=== PATIENT | male | born 1995 | race Caucasian/White ===

== ENCOUNTER 2024-01-28 06:07 | Day surgery (SDC) | payer OTHER, SELFPAY ==
[2024-01-28] VITALS (12 sets, daily range): BP systolic 103–141; BP diastolic 71–94; PULSE 73–133; RESP 16–22; TEMP 36.1–37.1; O2SAT 93–100; BMI 37.8
--- NOTE | 2024-01-28 | APP_PTH ---
PATIENT: RACH PINZON ANTHOACCT #:[id number] [place] [facility] [id number] AGE/SX: 28/M ROOM: RE01/28/[address]: Dr. Alex Taylor MD : 1995 BED: DIS: 01/28/2024 SPEC #: [id number] RECD: 01/28/24 11:37 STATUS: MONIKA RERuy #: [id number] JACINTO: 01/28/24 00:[address]: Alex Taylor DEPT: SURGICAL PATHOLOGY RECD BY: Martina Williamson ENTERED: 01/28/24 12:17 SP TYPE: APPENDIX OTHR DR: Marline Primary Care Phys Tissues: Appendix, NOS Procedures: Surgery Specimen Level III HEADER OPERATION: Laparoscopic appendectomy PRE-OP DIAGNOSIS: Acute appendicitis TISSUE SUBMITTED: Appendix MICROSCOPIC DIAGNOSIS Appendix, appendectomy: Acute necrotizing appendicitis. Acute serositis. AM. 01/29/2024 MICROSCOPIC DESCRIPTION Slides are reviewed. GROSS DESCRIPTION Received in fixative is one container labeled with the patient's name and designated appendix. The specimen consists of a vermiform appendix measuring 8.0 cm in length and 1.0 cm in average diameter. No gross perforations are evident. Serial sections reveal a patent lumen with fecal material. No mass lesion is identified. Build Engineer sections are submitted in one cassette. / AM: 01/28/2024 TC:2 CPT: 35851
--- NOTE | 2024-01-28 06:12 | EDS_ITS ---
HPI HPI - GI History of Present Illness Chief Complaint: Flank Pain Informant: patient Abdominal Pain/Flank Pain Onset: Yesterday Context: Gradual Onset Timing: Continuous Quality: Sharp Location: RLQ Worsened by: Nothing Relieved by: - (Movement, ambulation) Nausea/Vomiting/Emesis GI Symptom: Positive for Nausea and Vomiting Diarrhea/Melena/Hematochezia GI Symptom: Negative for Diarrhea, Melena or Hematochezia Associated Symptoms Associated Symptoms: Negative for Dysuria, Frequency or Hematuria Narrative Narrative: Patient presents with abdominal pain that began last night. Patient states it is gradually gotten worse. Patient states it is constant. Patient states the pain is sharp. Patient states that it is mainly over the right lower abdomen. Patient states that when he was able to get up and move last night it did start to feel better. Patient states nothing makes it worse. Patient states that now that he is laying flat his pain is improved but it is still present in the right lower abdomen. Patient does admit to a decreased appetite. Patient states his last meal was 7 PM last night. Patient admits to some nausea and vomiting. Patient denies any hematemesis or coffee-ground emesis. Patient denies any diarrhea, melena, or hematochezia. Patient denies any urinary complaints. [facility] Medical History (Updated 01/28/24 @ 07:[address] Noe Wesley DO) Benign brain tumor Home Medications ?Medication ?Instructions ?Recorded ?Last Taken ?Type NK 01/28/24 Unknown History Allergy/AdvReac Type Severity Reaction Status Date / Time No Known Allergies Allergy Verified 01/28/24 06:08 Surgical History (Updated 01/28/24 @ 06:[address] Noe Wesley DO) Hx of brain surgery Social History (Updated 01/28/24 @ 06:[address] Noe Wesley DO) Smoking Status: Current every day smoker tobacco type: cigarettes alcohol intake: current alcohol intake frequency: a few times a month ROS ROS ED Constitutional Constitutional ED: Reports fever(s) and subjective; Denies chills Eyes Eyes: Denies blurry vision or change in vision ENT ENT ED: Denies rhinorrhea or sore throat Cardiovascular Cardiovascular: Denies chest pain or palpitations Respiratory/Chest Respiratory/Chest: Denies cough or dyspnea Gastrointestinal Gastrointestinal: Reports abdominal pain, nausea and vomiting; Denies diarrhea or melena Genitourinary Genitourinary ED: Denies dysuria or hematuria Musculoskeletal Musculoskeletal: Denies back pain or neck pain Integumentary Denies abscess or rash Neurologic Neurologic: Denies headache(s) or weakness Allergic/Immunologic Allergic/Immunologic ED: Denies mouth swelling or urticaria EXAM Physical Exam Const Vital Signs: 01/28/24 06:08 Temperature 98.7 F Temperature Source Oral Pulse Rate 133 H Respiratory Rate 19 H Blood Pressure 141/80 H Blood Pressure Mean 100 Pulse Ox 99 Oxygen Delivery Method Room Air Positive well nourished and well developed General Appearance ED: well developed and NAD HEENT Reports moist mucous membranes Neck supple and no JVD Resp normal respiratory effort and clear to auscultation bilaterally Cardio regular rhythm Rate: tachycardic GI non-distended Palpation: soft and tender RLQ, RUQ and McBurney's point; Negative for guarding or rebound tenderness present Neuro CN's II-XII intact bilaterally, moves all extremities and no sensory deficits noted Sensorium / Orientation: alert Motor Exam: strength 5/5 throughout Psych mental status grossly normal MDM MDM MDM Narrative Medical decision making narrative: Differential diagnosis includes ureteral calculus, appendicitis, bowel obstruction, perforation, urinary tract infection, electrolyte abnormality, ga stroenteritis. CT scan of the abdomen and pelvis will be obtained to assess for ureteral calculus, bowel obstruction, perforation, and appendicitis. CBC will be obtained to assess for leukocytosis and anemia. Basic metabolic profile will be obtained to assess for electrolyte abnormality and renal function. Urinalysis will be obtained to assess for urinary tract infection and hematuria. Lab Data Attestation: I reviewed the patient's lab results. Lab results narrative: CBC was reviewed. There is a leukocytosis of 19.0. Basic metabolic profile was reviewed. BUN was 21 and creatinine was 1.31. Glucose was mildly elevated at 152. Labs: Laboratory Results - last 24 hr 01/28/24 06:17 WBC 19.0 H RBC 5.35 Hgb 15.4 Hct 44.8 MCV 83.7 MCH 28.8 MCHC 34.4 RDW Std Deviation 37.1 RDW Coeff of Cipriano 12.2 Plt Count 380 MPV 8.8 Immature Gran % (Auto) 0.400 Neut % (Auto) 79.2 H Lymph % (Auto) 11.3 L [place] % (Auto) 8.1 Eos % (Auto) 0.6 Baso % (Auto) 0.4 Absolute Neuts (auto) 15.1 H Absolute Lymphs (auto) 2.16 Nucleated RBC % 0 Diff Path Review June Sodium 138 Potassium 3.7 Chloride 108 H Carbon Dioxide 23.0 Anion Gap 7 BUN 21 H Creatinine 1.31 H Estim Creat Clear Calc 103.68 Est GFR (MDRD) Af Amer 82 Est GFR (MDRD) Non-Af 68 BUN/Creatinine Ratio 16.0 Glucose 152 H Calcium 9.1 Radiography Diagnostic Testing: Clinical Impression(s) from Imaging Studies Abdomen/Pelvis CT 01/28/24 06:27 IMPRESSION: Acute appendicitis. No definite evidence of perforation. Electronically Signed: Denise Winter MD at 7:48 EST , CT scan of the abdomen and pelvis was obtained. There is evidence of acute appendicitis. There is no evidence of perforation. This was interpreted by the radiologist was also independently reviewed by myself. Treatment and Re-Evaluation :: Smoking cessation was discussed. Patient was given IV fluids, morphine, and Zofran. Patient was feeling better on reevaluation. Patient was advised of his findings. Patient was given a dose of Zosyn. Case was discussed with Dr. Taylor from general surgery. Discharge Plan Triage Chief Complaint: Flank Pain ED Provider: Noe Wesley Dx/Rx/DC Orders Clinical Impression: Acute appendicitis, Abdominal pain, right lower quadrant Prescriptions: No Action NK Primary Care Provider: Care Physician,No Primary Referrals: Care Physician,No Primary [Primary Care Provider] - Print Language: Eritrean Disposition Disposition: [facility]
--- NOTE | 2024-01-28 06:27 | CT_ITS ---
We are attempting to reach an attending provider to discuss findings. An addendum with communication details will be sent when the communication is complete. EXAM: CT Abdomen And Pelvis W/O Contrast Injection HISTORY: Pain TECHNIQUE: Routine protocol CT abdomen and pelvis. IV Contrast: None.. Oral contrast: None. RADIATION DOSAGE (If Supplied By Facility): CTDIvol = ( 18.24 ) mGy, DLP = ( 1034.40 ) mGycm Individualized dose optimization techniques were used for this CT. COMPARISON: None. LIMITATIONS: None. FINDINGS: LOWER CHEST: Included lung bases are clear. LIVER: Grossly unremarkable. GALLBLADDER AND BILIARY TREE: Grossly unremarkable. PANCREAS: Grossly unremarkable. SPLEEN: Grossly unremarkable. ADRENAL GLANDS: Grossly unremarkable. KIDNEYS AND URETERS: No calculi demonstrated. No hydronephrosis. PERITONEUM: No free air. No free fluid. BOWEL: No bowel obstruction. APPENDIX: Enlarged 9 mm transverse, with extensive adjacent inflammatory stranding. No definite findings to suggest perforation although suboptimal without IV contrast. VESSELS: Abdominal aorta is normal caliber. REPRODUCTIVE ORGANS: Grossly unremarkable URINARY BLADDER: Grossly unremarkable. ABDOMINAL WALL: Unremarkable. BONES: No acute abnormalities. CT/Abdomen/Pelvis without Cont IMPRESSION: Acute appendicitis. No definite evidence of perforation. Electronically Signed: Denise Winter MD at 7:48 EST ,
[2024-01-28] MEDS: 0.9% Normal Saline (1000mL) 1,000 ML 999 ML IV (06:36)
[2024-01-28] MEDS: Ondansetron 4 MG/2 ML Vial IV (06:36)
[2024-01-28] MEDS: Morphine 4 MG/ML Syringe IV (06:37)
[2024-01-28 06:50] LABS: Absolute Lymphocyte Count 2.16 X10^3/uL (0.83-4.51); Absolute Neutrophil Count 15.1 X10^3/uL (2.0-7.7); Anion Gap 7 (5-15); BUN 21 mg/dL (7-18); Basophil# 0.07 X10^3/uL; Basophil% 0.4 % (0-1); Calcium,Total 9.1 mg/dL (8.5-10.1); Chloride 108 mmol/L (98-107); Creatinine, Serum 1.31 mg/dL (0.70-1.30); EST Glomerular Filtration Rate 68 mL/min (>60); Eosinophil# 0.12 X10^3/uL; Eosinophils% 0.6 % (0-5); Est Glom Filt Rate - Afr Amer 82 mL/min (>60); Estimated Creatinine Clearance 103.68 ml/min; Glucose 152 mg/dL (74-106); Hematocrit 44.8 % (40-54); Hemoglobin 15.4 g/dL (13.0-16.5); Lymphocyte # 2.16 X10^3/ul (0.83-4.51); Lymphocyte % 11.3 % (19-41); Mean Corp Hgb Conc 34.4 g/dL (32-36); Mean Corpuscular Hgb 28.8 pg (27.0-32.0); Mean Corpuscular Volume 83.7 fL (80-94); Mean Platelet Vol. 8.8 fl (6.2-12.0); Monocyte# 1.55 X10^3/uL; Monocyte% 8.1 % (0-10); NRBC Flagged by Analyzer 0 % (0-5); Neutrophil # 15.07 X10^3/uL (2.7-7.7); Neutrophil % 79.2 % (47-70); POSITIVE DIFFERENTIAL YES; Platelet Count 380 K/mm3 (150-450); Potassium 3.7 mmol/L (3.5-5.1); RBC Distribution Width CV 12.2 % (11.6-14.6); RBC Distribution Width SD 37.1 fl (35.1-43.9); Red Blood Count 5.35 M/mm3 (4.6-6.2); Sodium Level 138 mmol/L (136-145)
[2024-01-28 06:55] LABS: Differential Indicated SCAN CRITERIA MET
[2024-01-28] MEDS: Piperacil/Tazobactam 4.5 GM in 0.9% Normal Saline (100mL MB+) 100 ML IV (08:25)
[2024-01-28 08:36] LABS: Bacteria 0 SEEN /hpf (None Seen); Mucous, Urine 0 SEEN /hpf (<or=2+); Red Blood Cells-Urine 0 SEEN /hpf (0-5); Squamous Epithelial Cells - UA 0 SEEN /hpf (0-5); White Blood Cells 0 SEEN /hpf (0-5)
[2024-01-28 08:44] LABS: Color, Urine Yellow (Yellow); Glucose, Dipstick Normal (Normal); Ketone-Dipstick Negative (Negative); Leukocyte Esterase-Dipstick Negative /ul (Negative); Nitrite-Dipstick Negative (Negative); Occult Blood-Urine Negative /ul (Negative); Protein-Dipstick 15 mg/dl (Negative); Urine Bilirubin Dipstick Negative (Negative); Urine Clarity Clear (Clear); Urine Urobilinogen Normal (Normal); Urine pH 6.5 (5.0 - 8.0)
--- NOTE | 2024-01-28 09:38 | PRE.ANES_ITS ---
ASA Classification* ASA Classification ASA Classification: 2 Assessment & Plan Anesthesia* Anesthesia Assessment Anesthesia Assessment: Discussed sedation and/or anesthesia options, risks, benefits, and alternatives with patient/parents/legal guardian/POA. Questions invited. The patient/parents/legal guardian/POA seems to understand and agrees to proceed with anesthesia plan. Reviewed the physical assessment, medical history, allergy history and patient home medications list prior to surgery/procedure/anesthetic and documented any changes. Performed airway and anesthesia risk assessments. Anesthesia Type Anesthesia Type: General History Source History Obtained from:: Patient and Chart Anesthesia Focused Assessment* Temperature: 97.5 F Pulse Rate: 78 Blood Pressure: 136/85 Respiratory Rate: 16 Pulse Ox: 98 Oxygen Delivery Method: Room Air Airway Assessment Mouth opens: >3 cm Mallampati Score: II Teeth Condition: Chipped/Broken (Chipped tooth #12) Neck Range of motion (ROM): Full ROM Focused Labs Anesthesia Preop lab: CBC WBC 19.0 K/mm3 (4.4-11.0) H 01/28/24 06:17 RBC 5.35 M/mm3 (4.6-6.2) 01/28/24 06:17 Hgb 15.4 g/dL (13.0-16.5) 01/28/24 06:17 Hct 44.8 % (40-54) 01/28/24 06:17 Plt Count 380 K/mm3 (150-450) 01/28/24 06:17 CHEMISTRY Potassium 3.7 mmol/L (3.5-5.1) 01/28/24 06:17 Sodium 138 mmol/L (136-145) 01/28/24 06:17 BUN 21 mg/dL (7-18) H 01/28/24 06:17 Creatinine 1.31 mg/dL (0.70-1.30) H 01/28/24 06:17 Glucose 152 mg/dL (74-106) H 01/28/24 06:17 COAG Pre-Assessment Diagnosis/Proposed Procedure Planned Operative Procedure(s): Laparoscopic appendectomy. Anesthesia History Anesthesia History - radiological health specialist: Anesthesia History - radiological health specialist Hx Hospitalization No 01/25/16 00:01 Any Problems With Anesthesia No 01/28/24 08:42 Cholinesterase deficiency No 01/28/24 08:42 You/Your Family Experience No 01/28/24 08:42 fever (hyperthermia) with Relationship Recent Exposure to Contagious No 01/28/24 08:59 Disease Does patient have nerve No 01/28/24 08:42 stimulator Patient instructed to have No 01/28/24 08:42 device shut off --Does patient have Pacemaker No 01/28/24 08:59 or ICD? When Was Last Pacemaker Check QUESTION #4 FULL TEXT: You/Your Family Experience fever (hyperthermia) with Anesthesia Last Oral Intake Last Oral intake: Last Oral Intake NPO since Meds taken in AM with sips of water? Meds patient instructed to take am of surgery Any additional information?: Yes NPO since: 00:00 Meds taken in AM with sips of water?: Yes Meds patient instructed to take am of surgery: Patient had TheraFlu at 3 AM. PONV PONV - radiological health specialist: PONV - radiological health specialist Female HX of Motion Sickness HX of N/V After Surgery Non-Smoker Duration of Surgery greater than 60 minutes Number of Risk Factors PONV Score Height & Weight Height & Weight: Anesthesia: Height & Weight Height 5 ft 9 in 01/28/24 08:59 Weight: 116.2 kg 01/28/24 08:59 Body Mass Index (BMI) 37.8 01/28/24 08:59 Respiratory Assessment Respiratory Assessment - radiological health specialist: Respiratory Tract Infection Hx - radiological health specialist Hx Respiratory Tract Infection No 01/28/24 08:42 STOP Sleep Apnea STOP Sleep Apnea - radiological health specialist: STOP Sleep Apnea - radiological health specialist Hx Hypertension No 01/28/24 08:42 Hx Sleep Apnea No 01/28/24 08:42 CPAP BIPAP Do you snore loudly (louder No 01/28/24 08:42 than talking or can be heard Do you often feel tired/ No 01/28/24 08:42 fatigued/ sleepy during daytime? Has anyone observed you stop No 01/28/24 08:42 breathing during sleep? STOP Results Negative 01/28/24 08:42 QUESTION #5 FULL TEXT : Do you snore loudly (louder than talking or can be heard through closed doors)? 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 Specify any problems Hx of Preganancy in last 3 Months Nurse Filling Out Transfusion & Questions: Date: Time: Patient unable to answer at this time (ie. confused, unrespo /Reproduction History /Reproductive History - radiological health specialist: /Reproductive Hx- radiological health specialist Hx Now No 01/28/24 08:42 Gestational Age (in weeks): EDC: Hx Hx Para Hx Section [facility] Medical History Benign brain tumor Home Medications ?Medication ?Instructions ?Recorded ?Last Taken ?Type NK 01/28/24 Unknown History Allergy/AdvReac Type Severity Reaction Status Date / Time No Known Allergies Allergy Verified 01/28/24 06:08 Surgical History Hx of brain surgery Social History Smoking Status: Current every day smoker tobacco type: cigarettes alcohol intake: current alcohol intake frequency: a few times a month Review of Systems (Anesthesia) ROS Narrative System reviewed and no additional complaints, except as documented.
--- NOTE | 2024-01-28 10:29 | PCM.HP.STD ---
HPI - General General Date of Admission: 01/28/24 Date of Service: 01/28/24 Chief Complaint: Right lower quadrant pain/appendicitis HPI Narrative RACH MURDOCK, is a 28 M who presents with a 1 day history of right lower quadrant pain. This brought him to the emergency room earlier this morning. CT scan revealed acute appendicitis. White count was 19,000. General surgery was consulted and we have recommended laparoscopic appendectomy. [facility] Medical History Benign brain tumor Home Medications ?Medication ?Instructions ?Recorded ?Last Taken ?Type NK 01/28/24 Unknown History Allergy/AdvReac Type Severity Reaction Status Date / Time No Known Allergies Allergy Verified 01/28/24 06:08 Surgical History Hx of brain surgery Social History Smoking Status: Current every day smoker (Patient smoked today.) tobacco type: cigarettes alcohol intake: current alcohol intake frequency: a few times a month Vital Signs Vital Signs Vital Signs: 01/28/24 06:08 01/28/24 08:28 01/28/24 08:42 Temperature 98.7 F 98.2 F 97.5 F L Temperature Source Oral Oral Pulse Rate 133 H 79 78 Respiratory Rate 19 H 16 16 Respiratory Pattern Blood Pressure 141/80 H 126/85 H 136/85 H Blood Pressure Mean 100 98 102 Blood Pressure Source Monitor Blood Pressure Position Sitting Blood Pressure Location Right Arm Pulse Ox 99 99 98 Oxygen Delivery Method Room Air Room Air 01/28/24 08:59 01/28/24 09:46 Temperature 97.5 F L Temperature Source Pulse Rate 78 Respiratory Rate 16 Respiratory Pattern Normal Blood Pressure 136/85 H Blood Pressure Mean Blood Pressure Source Blood Pressure Position Blood Pressure Location Pulse Ox 98 Oxygen Delivery Method Room Air Weight Weight: 256 lb 2.834 oz Body Mass Index (BMI) 37.8 Physical Exam Const alert, oriented x3 and no apparent distress HEENT normocephalic Eyes PERRL Neck full ROM Chest inspection of chest normal Resp normal respiratory effort Cardio regular rate and regular rhythm GI GI Narrative: Right lower quadrant pain Results Lab / Micro Data 01/28/24 06:17 01/28/24 06:17 Labs: Laboratory Results - last 24 hr 01/28/24 06:17: WBC 19.0 H, RBC 5.35, Hgb 15.4, Hct 44.8, MCV 83.7, MCH 28.8, MCHC 34.4, RDW Std Deviation 37.1, RDW Coeff of Cipriano 12.2, Plt Count 380, MPV 8.8, Immature Gran % (Auto) 0.400, Neut % (Auto) 79.2 H, Lymph % (Auto) 11.3 L, [place] % (Auto) 8.1, Eos % (Auto) 0.6, Baso % (Auto) 0.4, Absolute Neuts (auto) 15.1 H, Absolute Lymphs (auto) 2.16, Nucleated RBC % 0, Diff Path Review June, Sodium 138, Potassium 3.7, Chloride 108 H, Carbon Dioxide 23.0, Anion Gap 7, BUN 21 H, Creatinine 1.31 H, Estim Creat Clear Calc 103.68, Est GFR (MDRD) Af Amer 82, Est GFR (MDRD) Non-Af 68, BUN/Creatinine Ratio 16.0, Glucose 152 H, Calcium 9.1 01/28/24 08:30: Urine Color Yellow, Urine Clarity Clear, Urine pH 6.5, Ur Specific [place] 1.010, Urine Protein 15 H, Urine Glucose (UA) Normal, Urine Ketones Negative, Urine Occult Blood Negative, Urine Nitrite Negative, Urine Bilirubin Negative, Urine Urobilinogen Normal, Ur Leukocyte Esterase Negative, Urine RBC 0 SEEN, Urine WBC 0 SEEN, Ur Squamous Epith Cells 0 SEEN, Urine Bacteria 0 SEEN, Urine Mucus 0 SEEN Imaging Radiology Impression Abdomen/Pelvis CT 01/28/24 06:27 IMPRESSION: Acute appendicitis. No definite evidence of perforation. Electronically Signed: Denise Winter MD at 7:48 EST , ADDENDUM: 01/28/24 9436 IMPRESSION: Acute appendicitis. No definite evidence of perforation. N.B. : The above Results were Read Back by Denise Winter MD to Noe Wesley DO, and understanding confirmed on 01/28/2024 07:52:16 (ET). Electronically Signed: Denise Winter MD at 7:48 EST , Assessment & Plan Assessment/Plan (1) Abdominal pain, right lower quadrant: PLAN: Plan The patient is a 28-year-old male with right lower quadrant pain. CT scan showed appendicitis I recommended a laparoscopic appendectomy as treatment. We discussed the details of the planned procedure and he wishes to proceed. This will begin momentarily Charges/Coding Visit Charges Inpatient E&M: 02807 Init Hosp L3
[2024-01-28] MEDS: Lactated Ringers 1,000 ML 15 ML IV (10:36)
[2024-01-28] MEDS: Bupiv/Epi 0.25% 30 ML Vial (11:18)
--- NOTE | 2024-01-28 11:24 | DCINST_ITS ---
Discharge Instructions Diet Discharge Diet: Light diet - advance as tolerated Activity Discharge Activity: May Shower May shower in (days): 1 Ice area for (Minutes): 30 Lifting Restrictions: no lifting, pushing or pulling over 20 pounds for 4 weeks Dressing / Incision Call your doctor if your incision/area has: Continuous Slow Oozing, Sudden Increased Bleeding, Increased Pain/ Swelling, Increased Redness, Foul Smelling Discharge and Swelling at the incision site Call your doctor if you observe: Fever of 101 or Higher Remove Dressing in: leave until fall off (skin glue will come off in 2-3 weeks; ok if it come off sooner ) Cleanse incision/area with: Soap & Water Follow Up Care Please Follow Up With: Alex Taylor MD When: 2 weeks Test Results: Test results from this visit will be discussed in further detail at your follow- up appointment, if applicable. Discharge Plan Admission Primary Reason for Your Visit: acute appendicitis Attending Provider: Alex Taylor Primary Care Provider: Care Physician,No Primary Instructions Print Language: Slovenian Discharge Orders/Prescriptions Prescriptions: New oxycodone-acetaminophen [Percocet] 5-325 mg tablet 1 tab PO Q8H PRN (Reason: pain) 4 Days Qty: 10 0RF No Action NK Referrals / Follow Up: Care Physician,No Primary [Primary Care Provider] - Disposition Disposition (needs filled in before D/C Order can be placed): Home, Self Care
--- NOTE | 2024-01-28 11:32 | PCM.OPRPT ---
Problems Associated Problem List Diagnoses (1) Acute appendicitis: Operative Report (Standard) Operative Information Surgery/Procedure Performed: laparoscopic appendectomy Surgeon: Alex Taylor Date of Procedure: 01/28/24 Procedure Start Time: 10:57 Procedure Stop Time: 11:26 Pre-Operative Diagnosis: acute appendicitis Post-Operative Diagnosis: acute appendicitis Select all DRAINS/GRAFTS/IMPLANTS that apply: None Type of Anesthesia: General and Local Special Medications: IV Zosyn Estimated Blood Loss: 10 ml Specimen collected: Yes Description of specimen(s) removed: APPENDIX Description of surgery: The patient is a 28-year-old male who presented earlier today to the emergency department with about 12 to 24 hours of abdominal pain. He was found on CAT scan to have a thickened appendix. His white blood cell count was 19,000. I saw the patient and recommended a laparoscopic appendectomy as treatment. We discussed the details of the planned procedure including the risks benefits and alternatives. He wished to proceed. After obtaining informed consent, the patient was brought to the operating room today. He had received IV Zosyn while in the emergency room. He was placed supine on the operative table with arms outstretched on arm boards. General anesthesia was induced. The abdomen was then prepped and draped in the usual sterile manner. A 5 mm incision was made in the inferior aspect of the umbilicus through which a 5 mm trocar was placed optically. Once in place the abdomen was then insufflated with CO2 gas. A 5 mm 0 degree scope was inserted. There were no signs of bowel or vascular injury. Next a 5 mm trocar was placed under direct visualization in the left lower quadrant. Following this, a 12 mm trocar was placed under direct visualization in the left upper quadrant. The patient was then positioned with some roll to the left and some Trendelenburg positioning. At this point the thickened appendix was visualized. The cecum was reflected in a cephalad direction and the base the appendix was identified. 1 grasper was placed near the base of the appendix and a [place] dissector was then used to create a small window at the base of the appendix and the mesentery. Next a EVER staple was utilized to staple across the base of the appendix flush with the cecum. Hemostasis was excellent. The appendix was then grasped at its midportion and then a vascular load was placed on the stapler and was utilized to staple across the mesoappendix. Hemostasis was excellent as well. The right lower quadrant was then irrigated and suctioned clear and dry. Again hemostasis was excellent. No signs of contamination or abscess. Next the fascia at the 12 mm trocar site was closed using 0 PDS with the aid of a suture passer/fascial closure device. 2 separate sutures were used to close the fascia. This closed the fascia nicely. The remaining trocars were opened up and insufflation was allowed to escape. The trocars were then removed. A total of 20 cc of local anesthetic were injected into the 3 incisions. The 3 incisions were then closed with 4-0 Vicryl. Skin glue was applied as dressing. He was awakened anesthesia and taken to the PACU in good condition A ARMORED MACHINE OPERATOR was utilized as a family readiness support assistant. His role included holding the camera and assistance with wound closure Surgical Findings: acute appendicitis [employer] air traffic controller: Yes Filter Press Operator: Nenita Saha Tasks completed by assistant refinery operator: Closing and Other (holding camera) Additional integration assistant?: No Complications Complications: No Admit VTE Documentation VTE Present on Admission: No VTE Mechan Device Prophylaxis: SCD's VTE Pharm Prophylaxis ordered?: No Reason prophylaxis not ordered: Treatment Not Indicated Procedures Digestive [id number]: [id number] Laparoscopy appendectomy
--- NOTE | 2024-01-28 11:38 | PCM.POST.ANE ---
Anesthesia: Postop Eval I Current Vital Signs Temperature: 97 F Pulse Rate: 100 Blood Pressure: 125/71 Respiratory Rate: 22 Pulse Ox: 93 Assessment Airway patent: Yes Spontaneous unlabored respirations: Yes nausea: No Vomiting: No Anesthesia Complication: No Fluid Hydration Crystalloid volume administer (ml): 1,000 Total IV fluid infused: 1,000 Progress Note Anesthesia document: Postop Eval 1 completed: Yes
[2024-01-28] MEDS: HYDROcodone Bitartrate/Apap 5/325 Tablet PO (12:49)
--- NOTE | 2024-01-28 14:51 | PCM.OPRPT ---
Problems Associated Problem List Diagnoses (1) Abnormal mammogram of right breast: Operative Report (Standard) Operative Information Surgeon: Alex Taylor Date of Procedure: 01/28/24 Procedure Start Time: 14:20
--- NOTE | 2024-01-29 07:49 | POSTOPAN2_ITS ---
Anesthesia Postop Eval I Sum Postop Eval Completion status Anesthesia document: Postop Eval 1 completed: Yes Anesthesia Postop Eval I Summary Anesthesia Postop Eval I Summary: Anesthesia Postop Eval I: Assessment Summary Airway patent Yes 01/28/24 11:38 HEALTH AND NUTRITION SPECIALIST.CSIR Spontaneous unlabored Yes 01/28/24 11:38 HEALTH AND NUTRITION SPECIALIST.CSIR respirations Mental status nausea No 01/28/24 11:38 HEALTH AND NUTRITION SPECIALIST.CSIR Vomiting No 01/28/24 11:38 HEALTH AND NUTRITION SPECIALIST.CSIR Anesthesia Postop Eval I: Fluid Summary Crystalloid volume administer 1,000 01/28/24 11:38 HEALTH AND NUTRITION SPECIALIST.CSIR (ml) Colloids volume administered ( ml) Blood Product volume administered (ml) Total IV fluid infused 1,000 01/28/24 11:38 HEALTH AND NUTRITION SPECIALIST.CSIR Anesthesia Postop Eval I: Summary Notes Anesthesia Complication No 01/28/24 11:38 HEALTH AND NUTRITION SPECIALIST.CSIR Anesthesia Complication Comment: Post-operative progress note Anesthesia: Postop Eval II Evaluation Mental status: Awake Pain Level: 0 nausea: No Vomiting: No
--- NOTE | 2024-01-29 07:49 | PCM.POSTANE2 ---
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 Spontaneous unlabored Yes 01/28/24 11:38 OIL PAINTER.CSIR respirations Mental status nausea No 01/28/24 11:38 OIL PAINTER.CSIR Vomiting No 01/28/24 11:38 OIL PAINTER.CSIR Anesthesia Postop Eval I: Fluid Summary Crystalloid volume administer 1,000 01/28/24 11:38 OIL PAINTER.CSIR (ml) Colloids volume administered ( ml) Blood Product volume administered (ml) Total IV fluid infused 1,000 01/28/24 11:38 OIL PAINTER.CSIR Anesthesia Postop Eval I: Summary Notes Anesthesia Complication No 01/28/24 11:38 OIL PAINTER.CSIR Anesthesia Complication Comment: Post-operative progress note Anesthesia: Postop Eval II Evaluation Mental status: Awake Pain Level: 0 nausea: No Vomiting: No
[2024-01-29 14:15] LABS: Pathologist Review Reviewed
== END 2024-01-28 14:29 | disposition home or self-care (01) ==
LOC: ED 08:19 → ACINP 08:36 → ED 10:35 → SDC 10:35
PROVIDERS: Emergency Provider Emergency Medicine; Visit Provider Surgery
PROC: 0DTJ4ZZ Resection of Appendix, Percutaneous Endoscopic Approach (ICD-10-PCS; CPT 44970; principal; 2024-01-28 13:10)
DX: K35.80 Unspecified acute appendicitis (principal); F17.210 Nicotine dependence, cigarettes, uncomplicated
CPT/HCPCS: 44970; 00840; 74176; 80048; 81001; 85025; 88304; 99284; A4216; J2405